=== PATIENT | male | born 1970 | race Two or more races ===

== ENCOUNTER 2020-11-17 15:57 | Outpatient (CLI) | payer SELFPAY ==
[~2020-11-17 15:57] MED LIST: OMNIPAQUE 350 MG/ML, 100ML BOTTLE ONE
== END 2020-11-17 23:59 | disposition home or self-care (01) ==
LOC: RAD 15:57
PROVIDERS: ATTEND Nurse Practitioner Family
DX: R31.9 Hematuria, unspecified (principal)
CPT/HCPCS: 36415; 74177; 82565; Q9967